=== PATIENT | female | born 1960 | race Caucasian/White ===

== ENCOUNTER → 2017-05-20 | Outpatient (CLI) | payer OTHER ==
[~2017-05-20] MED LIST: ATOR10TA82 PO; AVLX/400 PO; BUPR-79 PO; CALC600T9 PO; CARB0.5D28 OPB; CITA20TA4 PO; CLON0.5T3 PO; CYCL0.052 OP; DEXT1TAB50 PO; DICY10CA55 PO; DIVA250T PO; DOXY100C76 PO; ERYOPO OPB; FLUT0.15 INTNAS; GFNSR600 PO; GLUC10007 PO; HYCUDL5 PO; IBUP-1050 PO; IPRATROPIUM BROMIDE INT OCU; MONT1TAB3 PO; OMEG10007 PO; PRED20TA PO; PRLSR20 PO; RANI300T2 PO; RIZA10TA18 PO; SALINE NASAL RINSE INTNAS; SUMA100T16 PO; TRAZ50TA35 PO; WLLSRUNK; ZCRUNK
[2017-05-20 18:14] LABS: BASO % 0.5 %; BASO ABS # 0.04 K/uL (0-0.2); EOS % 1.9 %; EOS ABS # 0.14 K/uL (0-0.5); HEMATOCRIT 39.6 % (37-47); HEMOGLOBIN 13.6 g/dL (12.0-16.0); IG# 0.12 K/uL (0.00-0.02); LYMPH % 38.3 %; MEAN CELL VOLUME 86.3 fL (80-100); MEAN CORPUSCULAR HEMOGLOBIN 29.6 pg (25-34); MEAN CORPUSCULAR HGB CONC 34.3 g/dl (32-36); MEAN PLATELET VOLUME 9.9 fL (7.4-10.4); MONO % 9.7 %; MONO ABS # 0.71 K/uL (0.11-0.59); PLATELET COUNT 319 K/uL (130-400); RED CELL DISTRIBUTION WIDTH CV 13.7 % (11.5-14.5); RED CELL DISTRIBUTION WIDTH SD 43.4 fL (36.4-46.3); WHITE BLOOD COUNT 7.31 K/uL (4.8-10.8)
[2017-05-20 18:27] LABS: PTT PATIENT 29.9 SECONDS (21.0-31.0)
[2017-05-20 18:37] LABS: ALBUMIN 3.8 gm/dl (3.4-5.0); BLOOD UREA NITROGEN 19 mg/dl (7-18); CALCIUM 8.8 mg/dl (8.5-10.1); CARBON DIOXIDE 30 mmol/L (21-32); CREATININE 0.77 mg/dl (0.60-1.20); GLUCOSE 74 mg/dl (70-99); POTASSIUM 3.8 mmol/L (3.5-5.1); SODIUM 136 mmol/L (136-145)
[2017-05-21 06:14] LABS: HEMOGLOBIN A1C 5.2 % (4.5-5.6)
== END | disposition home or self-care (01) ==
LOC: C.LAB1850 17:02
PROVIDERS: ATTEND Internal Medicine Endocrinology, Diabetes & Metabolism
DX: Z01.812 Encounter for preprocedural laboratory examination (principal)

== ENCOUNTER 2017-06-14 08:03 | Inpatient (IN) | payer OTHER ==
[2017-05-20 15:23] VITALS: BMI 32.0
--- NOTE | 2017-05-20 15:58 | PAT Medication Instructions ---
Service Date May 20, 2017. Current Home Medication List Atorvastatin (Lipitor), 10 MG PO HS Bupropion (Wellbutrin Sr), 150 MG PO BID Calcium Carbonate-Vitamin D (Calcium + D), 1 TAB PO NOON Carboxymethylcellulose Sodium (Refresh Tears), 2 DROPS OPB PRN Citalopram Hydrobromide (Citalopram Hydrobromide), 30 MG PO QAM Clonazepam (Klonopin), 0.5 MG PO BID PRN for RN Cyclosporine (Ophth) (Restasis), 1 DROP OP BID Dextromethorphan-Guaifenesin (Mucinex Dm Maximum Streng), 1 TAB PO BID PRN for PRN Dicyclomine Hcl (Bentyl), 10 MG PO TID Divalproex Sodium (Depakote Er), 2 TAB PO BID Doxycycline Monohydrate (Monodox), 100 MG PO QAM Erythromycin Opth (Erythromycin Opth), 1 DOSE OPB PRN Fish Oil ([place]-3), 1 CAP PO NOON Fluticasone Propionate (Nasal) (Flonase Allergy Relief), 2 SPRAYS INTNAS PRN Glucosamine Sulfate (Glucosamine), 1,000 MG PO NOON Ibuprofen (Advil), 200 MG PO PRN Montelukast Sodium (Singulair), 10 MG PO QPM Omeprazole (Prilosec), 20 MG PO BID Ranitidine (Zantac), 300 MG PO HS Sumatriptan Succinate (Imitrex), 100 MG PO PRN Trazodone Hcl (Trazodone), 50 MG PO HS [Ipratropium [place]], 2 SPRAYS INT OCU PRN [Saline Nasal Rinse], 2 SPRAYS INTNAS PRN Medication Instructions For Your Scheduled Surgery -Contact your surgeon for instructions for: Ibuprofen (Advil), 200 MG PO PRN - Hold the following medications 2 weeks prior to surgery: Fish Oil ([place]-3), 1 CAP PO NOON Glucosamine Sulfate (Glucosamine), 1,000 MG PO NOON - Hold the following medications the morning of surgery: Dicyclomine Hcl (Bentyl), 10 MG PO TID Dextromethorphan-Guaifenesin (Mucinex Dm Maximum Streng), 1 TAB PO BID PRN for PRN Calcium Carbonate-Vitamin D (Calcium + D), 1 TAB PO NOON - Take the following medications the morning of surgery with a sip of water: Carboxymethylcellulose Sodium (Refresh Tears), 2 DROPS OPB PRN (if needed) Citalopram Hydrobromide (Citalopram Hydrobromide), 30 MG PO QAM Clonazepam (Klonopin), 0.5 MG PO BID PRN for RN (if needed) Cyclosporine (Ophth) (Restasis), 1 DROP OP BID [Ipratropium [place]], 2 SPRAYS INT OCU PRN (if needed) [Saline Nasal Rinse], 2 SPRAYS INTNAS PRN (if needed) Sumatriptan Succinate (Imitrex), 100 MG PO PRN (if needed) Omeprazole (Prilosec), 20 MG PO BID Fluticasone Propionate (Nasal) (Flonase Allergy Relief), 2 SPRAYS INTNAS PRN ( if needed) Erythromycin Opth (Erythromycin Opth), 1 DOSE OPB PRN (if needed) Doxycycline Monohydrate (Monodox), 100 MG PO QAM Divalproex Sodium (Depakote Er), 2 TAB PO BID Bupropion (Wellbutrin Sr), 150 MG PO BID BRING ALL OF YOUR EYE DROPS WITH YOU TO THE HOSPITAL THE MORNING OF THE SURGERY - Take the following medications as scheduled the night before surgery: Montelukast Sodium (Singulair), 10 MG PO QPM Omeprazole (Prilosec), 20 MG PO BID Ranitidine (Zantac), 300 MG PO HS Sumatriptan Succinate (Imitrex), 100 MG PO PRN (if needed) Trazodone Hcl (Trazodone), 50 MG PO HS [Ipratropium [place]], 2 SPRAYS INT OCU PRN (if needed) [Saline Nasal Rinse], 2 SPRAYS INTNAS PRN (if needed) Fluticasone Propionate (Nasal) (Flonase Allergy Relief), 2 SPRAYS INTNAS PRN ( if needed) Erythromycin Opth (Erythromycin Opth), 1 DOSE OPB PRN (if needed) Divalproex Sodium (Depakote Er), 2 TAB PO BID Dicyclomine Hcl (Bentyl), 10 MG PO TID Dextromethorphan-Guaifenesin (Mucinex Dm Maximum Streng), 1 TAB PO BID PRN for PRN (if needed) Clonazepam (Klonopin), 0.5 MG PO BID PRN for RN (if needed) Cyclosporine (Ophth) (Restasis), 1 DROP OP BID Carboxymethylcellulose Sodium (Refresh Tears), 2 DROPS OPB PRN (if needed) Atorvastatin (Lipitor), 10 MG PO HS Bupropion (Wellbutrin Sr), 150 MG PO BID If you have any questions please call us at [phone] or [phone] or [phone]
--- NOTE | 2017-06-10 09:40 | History and Physical ---
History & Physical Date Jun 10, 2017. Chief Complaint Left knee pain History of Present Illness The patient is a 56 year old female with complaints of left knee pain for several years. She has tried conservative therapy with minimal relief. She would like to proceed with scheduled surgery. Past Medical/Surgical History PMHx: hypercholesterolemia, anxiety, osteoarthritis, GERD, H/O basal cell carcinoma PSHx: partial hysterectomy, x1 Additional History Hepatic Disease: No Endocrine Disorder: No Kidney Disease: No Hypertension: No Heart Disease: No Bleeding Tendencies: No Infectious Diseases: No Allergies Coded Allergies: Bacitracin (Verified Allergy, Mild, RASH with eye ointment, 05/20/17) Nickel (Verified Allergy, Unknown, REDNESS,ITCHING MILD PAIN WITH, 05/20/17 ) Home Medications Scheduled Atorvastatin (Lipitor), 10 MG PO HS Bupropion (Wellbutrin Sr), 150 MG PO BID Calcium Carbonate-Vitamin D (Calcium + D), 1 TAB PO NOON Carboxymethylcellulose Sodium (Refresh Tears), 2 DROPS OPB PRN Citalopram Hydrobromide (Citalopram Hydrobromide), 30 MG PO QAM Cyclosporine (Ophth) (Restasis), 1 DROP OP BID Dicyclomine Hcl (Bentyl), 10 MG PO TID Divalproex Sodium (Depakote Er), 2 TAB PO BID Doxycycline Monohydrate (Monodox), 100 MG PO QAM Erythromycin Opth (Erythromycin Opth), 1 DOSE OPB PRN Fish Oil ([place]-3), 1 CAP PO NOON Fluticasone Propionate (Nasal) (Flonase Allergy Relief), 2 SPRAYS INTNAS PRN Glucosamine Sulfate (Glucosamine), 1,000 MG PO NOON Ibuprofen (Advil), 200 MG PO PRN Montelukast Sodium (Singulair), 10 MG PO QPM Omeprazole (Prilosec), 20 MG PO BID Ranitidine (Zantac), 300 MG PO HS Sumatriptan Succinate (Imitrex), 100 MG PO PRN Trazodone Hcl (Trazodone), 50 MG PO HS [Ipratropium [place]], 2 SPRAYS INT OCU PRN [Saline Nasal Rinse], 2 SPRAYS INTNAS PRN Scheduled PRN Clonazepam (Klonopin), 0.5 MG PO BID PRN for RN Dextromethorphan-Guaifenesin (Mucinex Dm Maximum Streng), 1 TAB PO BID PRN for PRN Physical Examination Skin: warm/dry, no rash Eyes: normal inspection, EOMI ENT: normal ENT inspection Head: normocephalic, atraumatic Neck: supple, no adenopathy Respiratory/Chest: lungs clear, normal breath sounds Cardiovascular: regular rate, rhythm, no murmur Abdomen / GI: normal bowel sounds, non tender Extremities: normal inspection, + pertinent finding (Medial joint line tenderness. Decreased strength.) Diagnosis Primary osteoarthritis of left knee Plan of Treatment Patient is scheduled for a left total knee arthroplasty. She has failed conservative therapies and would like to proceed with scheduled surgery. Risks and benefits were discussed with the patient. She understands these risks and wishes to proceed. All questions were answered to her satisfaction. DVT prophylaxis - ASA, DISCHARGE - home with home health. PER INSURANCE, SHE WILL NEED TO BE A 24 HOURS OBSERVATION.
[2017-06-14] VITALS (7 sets, daily range): BP systolic 115–138; BP diastolic 72–87; PULSE 82–92; TEMP 36.3–36.8; O2SAT 93–97; Ht 170.2 cm; Wt 94.8 kg
[~2017-06-14] VITALS: Ht 170.2 cm; Wt 94.8 kg
[2017-06-14] MEDS: TRANEXAMIC ACID INJ 1,000 MG x 2 Bags IV SCH ×4 (06:30→11:35)
[~2017-06-14 08:03] MED LIST changes: +ACETAMINOPHEN 500 MG TAB PO SCH; -AVLX/400 PO; +BUPIVACAINE 0.25% 30 ML VIAL ONE; +BUPIVACAINE 0.5 % 5 MG/1 ML PF 10ML VIAL ONE; +CEFAZOLIN 2000MG IV PUSH 15 ML IV SCH; +DEXAMETHASONE 4 MG TAB PO SCH; +FAMOTIDINE 20 MG TAB PO SCH; +GABAPENTIN 900 MG PO SCH; -GFNSR600 PO; -HYCUDL5 PO; +LACTATED RINGER'S 1000ML 1,000 ML IV SCH; +LACTATED RINGER'S 1000ML 500 ML IV SCH; +METOCLOPRAMIDE HCL 10 MG TAB PO SCH; -PRED20TA PO; -RIZA10TA18 PO; +ROPIVACAINE 5MG/ML 30 ML 150 MG, BUPIVACAINE 0.5% MPF INJ 30 ML, EpINEphrine HCL INJ 0.... INFIL SCH; -WLLSRUNK; -ZCRUNK
--- NOTE | 2017-06-14 09:41 | History & Physical Bridge Note ---
H&P Re-Evaluation Bridge Note: I have examined the patient, reviewed the History & Physical and in the interval since the performance of the History & Physical I have noted the following changes of clinical significance: No changes noted
[2017-06-14] MEDS ORDERED: POVIDONE-IODINE OP SOLN 30 ML BTL ONE (10:32)
[2017-06-14] MEDS ORDERED: ORTHO JOINT ANESTHETIC ONE (10:32)
[2017-06-14] MEDS ORDERED: BACITRACIN 50000 UNIT VIAL ONE (10:33)
[2017-06-14] MEDS ORDERED: MIDAZOLAM HCL 1 MG/ML 2ML VIAL ONE ×2 (10:58)
[2017-06-14] MEDS ORDERED: PROPOFOL IV EMULSION 10 MG/ML 20 ML VIAL IV ONE ×3 (10:58→12:38)
--- NOTE | 2017-06-14 13:35 | [facility] Operative Report ---
Operative Report Operative Date Jun 14, 2017. Pre-Operative Diagnosis Degenerative Joint Disease Left Knee Post-Operative Diagnosis Same as preop Procedure(s) Performed Left total knee arthroplasty Surgeon Dr. Stevens Research Worker Kitchen Surgeon(s) Lolis EPPS Estimated Blood Loss 20ML Specimens Left knee bone and tissue Drains 2 Hemovac Anesthesia Type MAC Spinal Regional Complication(s) none Disposition Recovery Room / PACU Indications The patient is a 56-year-old female long-standing arthritic change the right knee. She is failed conservative measures including injection, anti- inflammatories, physical therapy. She wishes to proceed with left total knee arthroplasty. Description of Procedure Risks benefits and alternatives of surgery including but not limited to infection, DVT, pain, stiffness, need for surgery, damage to blood vessels, damage to nerves or risks of anesthesia were discussed with the patient and they wished to proceed. The patient was identified and the laterality was confirmed and marked. They received a preoperative antibiotic as well as a spinal anesthetic and an abductor canal block. A well-padded tourniquet was applied and then the limb was prepped and draped in standard manner with ChloraPrep. The limb was exsanguinated and the tourniquet was inflated. I made a standard anterior incision. I sharply incised the skin then utilized Bovie electrocautery as well as the aqua mantis to achieve hemostasis. I made a medial parapatellar arthrotomy and mobilized the patella laterally. I then excised the anterior horns of the medial and lateral meniscus as well as the infrapatellar fat pad. I elevated a portion of the MCL off of the tibia. I then pinned into place a patient-matched distal femoral cutting guide and made my distal femoral resection. I then pinned into place the 5 in 1 femoral cutting guide. I made my anterior, posterior and chamfer cuts. I then excised the cruciates and the remaining portions of the menisci. I then pinned into place a patient- matched tibial cutting guide and made my tibial resection. I then pinned into place the tibial plate a utilizing alignment nikolas to confirm rotation. I then cut for the post. Utilizing a lamina ten pin bowling centre manager and I then removed posterior osteophytes off the femur. I then placed a trial femur into position and cut for the trochlear component. The size 4 appeared to be too wide. I removed the size 4 femur placed a size 3 cutting guide in position and recut for size 3 femur. There was still a little bit of medial to lateral mismatch but it did fit much better than the 4. I then sequentially trialed to size the polyethylene until there was good soft tissue balancing and range of motion. I then prepared the patella with a freehand cut utilizing sagittal saw. I sized and drilled for the patella. There was good tracking to the patella no lateral release was needed. All the trial components were removed. The deep tissues were anesthetized with an ortho mix solution. Then with Simplex HV with gentamicin cement, I cemented my definitive components. Definitive components, Eldridge [employer] Nephew Annyney 2: Femur 3 Tibia 2 Poly 9 Patella 32 oval A betadine soak was performed. A deep drain was placed. The arthrotomy was closed with interrupted #1 Vicryl suture subcutaneous tissue was closed with interrupted 2-0 Vicryl suture. The skin was closed with bandar. A Silverlon was placed. Sterile dressings were applied. All needle and sponge counts were correct at the end of the procedure patient was transferred to the PACU in stable condition without apparent complication. The PA-C was necessary for assistance with procedure for assistance in positioning, prepping, draping, retraction and closure. I attest to the content of the Intraoperative Record and any orders documented therein. Any exceptions are noted below.
[2017-06-14] MEDS ORDERED: DiphenhydrAMINE HCL 50 MG/ML VIAL IV PRN (14:00)
[2017-06-14] MEDS ORDERED: BISACODYL 10 MG SUPP PR PRN (14:00)
[2017-06-14] MEDS ORDERED: CEFAZOLIN IV 2,000 MG in DEXTROSE 5% 50ML 50 ML IV SCH (14:00)
[2017-06-14] MEDS ORDERED: MAGNESIUM HYDROXIDE SUSP 30 ML UDC PO PRN (14:00)
[2017-06-14] MEDS ORDERED: ONDANSETRON INJ 2 MG/ML 2 ML VIAL IV PRN (14:00)
[2017-06-14] MEDS ORDERED: ALUMINUM/MAGNESIUM/SIMETH (MAALOX MAX) 30 ML UDC PO PRN (14:00)
[2017-06-14] MEDS ORDERED: GLUCOSAMINE SULFATE 1000 MG PO SCH (14:00)
[2017-06-14] MEDS ORDERED: MoRPHine SULFATE 2 MG/ML CARP IV PRN (14:00)
[2017-06-14] MEDS ORDERED: SUMATRIPTAN SUCC TAB 100 MG TAB PO PRN (14:00)
[2017-06-14] MEDS ORDERED: ZOLPIDEM TARTRATE 5 MG TAB PO PRN (14:00)
[2017-06-14] MEDS ORDERED: CLONAZEPAM 0.5 MG TAB PO PRN (14:00)
[2017-06-14] MEDS ORDERED: SOD PHOSPHATE/SOD BIPHOSPHATE ENEMA 132 ML BTL PR PRN (14:00)
--- NOTE | 2017-06-14 14:21 | DIAGNOSTIC IMAGING REPORT ---
TWO VIEWS LEFT KNEE CLINICAL HISTORY: Postoperative examination. FINDINGS: AP and crosstable lateral portable views of the left knee are obtained. A left knee arthroplasty is in near anatomic alignment. There has been undersurface remodeling of the patella. No acute fracture is seen. There are expected postoperative changes around the knee including skin clips, a surgical drain, soft tissue edema, and subcutaneous gas. IMPRESSION: Expected postoperative changes status post left knee arthroplasty. No acute fracture is seen. Electronically signed by: Justin Yates M.D. 06/14/2017 2:20 PM Dictated Date/Time: 06/14/2017 2:20 PM
[2017-06-14] MEDS ORDERED: GUAIFENESIN/DEXTROM SYRUP 200MG/20MG 10ML UDC PO PRN (14:30)
[2017-06-14] MEDS ORDERED: SODIUM CHLORIDE 0.65% NA SOLN 45 ML (OCEAN) PRN (14:30)
--- NOTE | 2017-06-14 14:56 | Anesthesiology Progress Note ---
Anesthesia Post Op Note Date & Time Jun 14, 2017 at 14:55 Vital Signs Pain Intensity: 0 Vital Signs Past 12 Hours Date Time Temp Pulse Resp B/P (MAP) Pulse Ox O2 Delivery O2 Flow Rate FiO2 06/14/17 14:49 82 16 98 06/14/17 14:49 81 16 06/14/17 14:46 120/73 06/14/17 14:44 85 13 95 06/14/17 14:44 84 13 06/14/17 14:41 126/82 06/14/17 14:39 83 12 06/14/17 14:39 83 12 93 06/14/17 14:38 121/74 06/14/17 14:37 83 12 94 06/14/17 14:37 84 12 06/14/17 14:35 36.9 06/14/17 14:32 84 16 94 06/14/17 14:32 84 16 06/14/17 14:31 122/78 06/14/17 14:29 89 13 93 06/14/17 14:29 89 13 06/14/17 14:26 121/77 06/14/17 14:24 85 16 06/14/17 14:24 85 16 94 06/14/17 14:23 88 17 95 06/14/17 14:23 87 17 06/14/17 14:20 129/84 06/14/17 14:18 88 16 96 06/14/17 14:18 88 16 06/14/17 14:16 103/78 06/14/17 14:13 89 16 97 06/14/17 14:13 89 16 06/14/17 14:12 89 16 96 06/14/17 14:12 90 16 06/14/17 14:11 125/77 06/14/17 14:07 92 12 95 06/14/17 14:07 93 12 06/14/17 14:06 133/76 06/14/17 14:02 91 18 06/14/17 14:02 90 18 92 06/14/17 14:01 124/96 06/14/17 13:58 136/86 06/14/17 13:57 36.7 92 14 136/86 93 Oxymask 15 06/14/17 13:57 95 92 06/14/17 13:57 95 06/14/17 09:00 36.8 83 18 138/87 96 Room Air Notes Mental Status: alert / awake / arousable, participated in evaluation Pt Amnestic to Procedure: Yes Nausea / Vomiting: adequately controlled Pain: adequately controlled Airway Patency, RR, SpO2: stable & adequate BP & HR: stable & adequate Hydration State: stable & adequate Neuraxial Anesthesia: was administered, sensory block is resolving Anesthetic Complications: no major complications apparent
[2017-06-14] MEDS: SODIUM CHLORIDE 0.9% 1000ML 1,000 ML IV SCH (16:00)
[2017-06-14] MEDS ORDERED: IPRATROPIUM BROMIDE NASAL SPRAY 0.06% 15ML INH PRN (16:00)
[2017-06-14] MEDS: FERROUS GLUCONATE 324 MG TAB PO SCH (18:03)
[2017-06-14] MEDS: CEFAZOLIN IV 2,000 MG in SYRINGE 0 ML IV SCH (21:08)
[2017-06-14] MEDS: MONTELUKAST SOD 10 MG TAB PO SCH (21:08)
[2017-06-14] MEDS: DICYCLOMINE HCL 10 MG CAP PO SCH (21:08)
[2017-06-14] MEDS: OXYCODONE HCL IR 5 MG TAB (IMMEDIATE RELEASE) PO PRN ×2 (21:08→22:33)
[2017-06-14] MEDS: SENNA 8.6 MG TAB PO SCH (21:08)
[2017-06-14] MEDS: DOCUSATE SODIUM 100 MG CAP PO SCH (21:09)
[2017-06-14] MEDS: ASPIRIN 81 MG ECTAB PO SCH (21:09)
[2017-06-14] MEDS: RANITIDINE HCL 150 MG TAB PO SCH (21:09)
[2017-06-14] MEDS: TRAZODONE HCL 50 MG TAB PO SCH (21:09)
[2017-06-14] MEDS: ATORVASTATIN 10 MG TAB PO SCH (21:09)
[2017-06-14] MEDS: CeleBREX 200 MG CAP PO SCH (21:10)
[2017-06-14] MEDS: DIVALPROEX 500 MG EXTENDED RELEASE TAB PO SCH (21:10)
[2017-06-14] MEDS: BuPROPion SR 150 MG TABCR PO SCH (21:10)
[2017-06-14] MEDS: PANTOprazole SOD 40 MG TAB PO SCH (21:11)
[2017-06-15] MEDS: SODIUM CHLORIDE 0.9% 1000ML 1,000 ML IV SCH ×2 (00:53→11:51)
[2017-06-15 03:30] VITALS: BP 124/76; PULSE 85; TEMP 36.4; O2SAT 96
[2017-06-15] MEDS: CEFAZOLIN IV 2,000 MG in SYRINGE 0 ML IV SCH (04:29)
[2017-06-15 06:25] LABS: HEMATOCRIT 34.5 % (37-47); HEMOGLOBIN 11.6 g/dL (12.0-16.0); MEAN CELL VOLUME 87.3 fL (80-100); MEAN CORPUSCULAR HEMOGLOBIN 29.4 pg (25-34); MEAN CORPUSCULAR HGB CONC 33.6 g/dl (32-36); MEAN PLATELET VOLUME 9.7 fL (7.4-10.4); PLATELET COUNT 299 K/uL (130-400); RED CELL DISTRIBUTION WIDTH CV 13.3 % (11.5-14.5); WHITE BLOOD COUNT 14.24 K/uL (4.8-10.8)
[2017-06-15 07:07] LABS: CALCIUM 8.2 mg/dl (8.5-10.1); CREATININE 0.82 mg/dl (0.60-1.20)
[2017-06-15 07:35] VITALS: BP 124/83; PULSE 85; TEMP 36.4; O2SAT 96
[2017-06-15] MEDS: BuPROPion SR 150 MG TABCR PO SCH ×2 (08:45→20:51)
[2017-06-15] MEDS: CeleBREX 200 MG CAP PO SCH ×2 (08:45→20:52)
[2017-06-15] MEDS: DOCUSATE SODIUM 100 MG CAP PO SCH ×2 (08:46→20:51)
[2017-06-15] MEDS: DIVALPROEX 500 MG EXTENDED RELEASE TAB PO SCH ×2 (08:46→20:52)
[2017-06-15] MEDS: ASPIRIN 81 MG ECTAB PO SCH ×2 (08:46→20:52)
[2017-06-15] MEDS: FERROUS GLUCONATE 324 MG TAB PO SCH ×3 (08:47→17:55)
[2017-06-15] MEDS: CITALOPRAM 20 MG TAB PO SCH (08:47)
[2017-06-15] MEDS: MULTIVITAMIN TAB PO SCH (08:48)
[2017-06-15] MEDS: DICYCLOMINE HCL 10 MG CAP PO SCH ×3 (08:55→20:51)
[2017-06-15] MEDS: PANTOprazole SOD 40 MG TAB PO SCH ×2 (10:53→20:51)
--- NOTE | 2017-06-15 11:30 | Orthopedic Progress Note ---
Orthopedic Progress Note Date of Service Jun 15, 2017. Subjective Post OP Day: 1 Reports: feeling well, Denies: chest pain, SOB, nausea / vomiting, light headedness, calf pain Objective calves soft nontender, N/V intact, capillary refill less than 2 sec., dressing C /D/I, A&O x3, toes mobile, hemovac drainage Date Time Temp Pulse Resp B/P (MAP) Pulse Ox O2 Delivery O2 Flow Rate FiO2 06/15/17 07:35 36.4 85 18 124/83 (97) 96 Nasal Cannula 2.0 06/15/17 07:35 Room Air 06/15/17 03:30 36.4 85 18 124/76 (92) 96 Nasal Cannula 2.0 06/14/17 23:10 Room Air 06/14/17 23:08 36.6 82 16 123/72 (89) 93 Room Air 06/14/17 18:57 36.4 88 18 128/81 (97) 96 Room Air 06/14/17 17:26 36.3 84 18 121/82 (95) 94 Room Air 06/14/17 16:27 36.3 83 16 115/75 (88) 97 Nasal Cannula 4.0 06/14/17 16:00 36.5 85 16 128/85 (99) 97 Nasal Cannula 4.0 06/14/17 15:30 36.6 92 16 120/82 (95) 93 Nasal Cannula 4.0 06/14/17 15:30 96 Nasal Cannula 4.0 06/14/17 15:30 Nasal Cannula 4.0 06/14/17 15:25 36.5 06/14/17 15:22 86 16 94 06/14/17 15:22 86 16 06/14/17 15:21 118/74 06/14/17 15:17 85 13 06/14/17 15:17 85 13 93 06/14/17 15:16 130/77 06/14/17 15:12 81 14 93 06/14/17 15:12 83 14 06/14/17 15:11 119/73 06/14/17 15:07 82 14 06/14/17 15:07 81 14 95 06/14/17 15:06 121/75 06/14/17 15:02 80 18 06/14/17 15:02 80 18 95 3/9/18 15:01 121/75 18 15:00 82 20 94 39/18 15:00 82 20 3/9/18 14:56 124/80 18 14:55 81 13 96 18 14:55 83 13 18 14:51 116/80 18 14:50 85 14 93 18 14:50 84 14 06/14/17 14:49 82 16 98 18 14:49 81 16 18 14:46 120/73 18 14:44 85 13 95 18 14:44 84 13 06/14/17 14:41 126/82 06/14/17 14:39 83 12 06/14/17 14:39 83 12 93 18 14:38 121/74 06/14/17 14:37 83 12 94 18 14:37 84 12 06/14/17 14:35 36.9 06/14/17 14:32 84 16 94 06/14/17 14:32 84 16 06/14/17 14:31 122/78 06/14/17 14:29 89 13 93 18 14:29 89 13 06/14/17 14:26 121/77 06/14/17 14:24 85 16 06/14/17 14:24 85 16 94 18 14:23 88 17 95 18 14:23 87 17 18 14:20 129/84 06/14/17 14:18 88 16 96 18 14:18 88 16 18 14:16 103/78 18 14:13 89 16 97 18 14:13 89 16 18 14:12 89 16 96 18 14:12 90 16 18 14:11 125/77 18 14:07 92 12 95 18 14:07 93 12 18 14:06 133/76 06/14/17 14:02 91 18 06/14/17 14:02 90 18 92 06/14/17 14:01 124/96 06/14/17 13:58 136/86 06/14/17 13:57 36.7 92 14 136/86 93 Oxymask 15 06/14/17 13:57 95 92 06/14/17 13:57 95 Laboratory Results 24 Hours: Test 06/15/17 05:57 Hematocrit 34.5 % Hemoglobin 11.6 g/dL Prothromb Time International Ratio 1.0 Prothrombin Time 10.7 SECONDS Assessment & Plan Assessment: s/p left TKA POD #1 Plan: Plan for home with DVT prophylaxis: ASA SCDs/TEDs Inhouse Planning Pain Management: Oxy IR DVT Prophylaxis: TEDs, SCDs, ASA Discharge Planning Discharge Planning: home with home health Therapy: Physical Therapy
[2017-06-15] MEDS: CALCIUM 600MG + VIT D 400 IU TAB PO SCH (11:52)
[2017-06-15 12:15] VITALS: BP 142/87; PULSE 81; TEMP 36.3; O2SAT 95
[2017-06-15 15:04] VITALS: BP 175/93; PULSE 91; TEMP 36.4; O2SAT 98
[2017-06-15] MEDS: OXYCODONE HCL IR 5 MG TAB (IMMEDIATE RELEASE) PO PRN (15:19)
[2017-06-15 15:25] VITALS: BP 147/90
[2017-06-15] MEDS: ATORVASTATIN 10 MG TAB PO SCH (21:24)
[2017-06-15] MEDS: RANITIDINE HCL 150 MG TAB PO SCH (21:24)
[2017-06-15] MEDS: TRAZODONE HCL 50 MG TAB PO SCH (21:24)
[2017-06-15] MEDS: SENNA 8.6 MG TAB PO SCH (21:24)
[2017-06-15] MEDS: MONTELUKAST SOD 10 MG TAB PO SCH (21:24)
[2017-06-15 23:05] VITALS: BP 145/85; PULSE 80; TEMP 36.8; O2SAT 94
[2017-06-16] MEDS: OXYCODONE HCL IR 5 MG TAB (IMMEDIATE RELEASE) PO PRN ×3 (00:02→12:34)
[2017-06-16 07:22] VITALS: BP 146/84; PULSE 79; TEMP 36.7; O2SAT 95
[2017-06-16] MEDS: FERROUS GLUCONATE 324 MG TAB PO SCH ×2 (07:25→12:36)
[2017-06-16] MEDS: DICYCLOMINE HCL 10 MG CAP PO SCH (07:25)
[2017-06-16] MEDS: BuPROPion SR 150 MG TABCR PO SCH (07:25)
[2017-06-16] MEDS: MULTIVITAMIN TAB PO SCH (07:25)
[2017-06-16] MEDS: PANTOprazole SOD 40 MG TAB PO SCH (07:25)
[2017-06-16] MEDS: CITALOPRAM 20 MG TAB PO SCH (07:38)
[2017-06-16 08:32] VITALS: BP 154/92
[2017-06-16] MEDS: DIVALPROEX 500 MG EXTENDED RELEASE TAB PO SCH (09:25)
[2017-06-16] MEDS: ASPIRIN 81 MG ECTAB PO SCH (09:25)
[2017-06-16] MEDS: CeleBREX 200 MG CAP PO SCH (09:25)
[2017-06-16] MEDS: DOCUSATE SODIUM 100 MG CAP PO SCH (09:25)
[2017-06-16 09:58] VITALS: BP 154/92; PULSE 79; TEMP 36.7; O2SAT 95
--- NOTE | 2017-06-16 11:24 | Orthopedic Progress Note ---
Orthopedic Progress Note Date of Service Jun 16, 2017. Subjective Post OP Day: 2 Reports: feeling well, pain controlled w PO medications, Denies: chest pain, SOB , nausea / vomiting, light headedness, calf pain Objective calves soft nontender, N/V intact, capillary refill less than 2 sec., dressing C /D/I (silverlon), A&O x3, toes mobile Date Time Temp Pulse Resp B/P (MAP) Pulse Ox O2 Delivery O2 Flow Rate FiO2 06/16/17 09:58 36.7 79 16 95 Room Air 06/16/17 07:22 36.7 79 16 146/84 (104) 95 Room Air 06/16/17 07:15 Room Air 06/16/17 00:00 Nasal Cannula 2.0 06/15/17 23:05 36.8 80 16 145/85 (105) 94 Room Air 06/15/17 15:25 147/90 (109) 06/15/17 15:15 Room Air 06/15/17 15:04 36.4 91 17 175/93 (120) 98 Room Air 06/15/17 12:15 36.3 81 19 142/87 (105) 95 Room Air Assessment & Plan Assessment: s/p left TKA POD #2 Plan: Plan for home with DVT prophylaxis: ASA SCDs/TEDs Inhouse Planning Pain Management: Celebrex, PO Tylenol, Oxy IR DVT Prophylaxis: TEDs, SCDs, ASA Discharge Planning Discharge Planning: home with home health Pain Management: Celebrex, PO Tylenol, Oxy IR DVT Prophylaxis: TEDs, ASA Therapy: Physical Therapy
[2017-06-16] MEDS ORDERED: ONDA8TAB6 PO (11:27)
[2017-06-16] MEDS ORDERED: CLB200 PO (11:27)
[2017-06-16] MEDS ORDERED: ASPEC81 PO (11:27)
[2017-06-16] MEDS ORDERED: FRRG PO (11:27)
[2017-06-16] MEDS ORDERED: RXC5 PO (11:27)
--- NOTE | 2017-06-16 11:30 | Discharge Instructions ---
Discharge Instructions Date of Service Jun 16, 2017. Admission Reason for Admission: Left Knee Osteoarthritis Discharge Discharge Diagnosis / Problem: left TKA Discharge Goals Goal(s): Decrease discomfort, Improve function, Increase independence, Therapeutic intervention Activity Recommendations Activity Limitations: per Instructions/Follow-up section . Instructions / Follow-Up Instructions / Follow-Up ACTIVITY RECOMMENDATIONS: SELF CARE INSTRUCTIONS AFTER TOTAL KNEE REPLACEMENT A. You may need to continue a physical therapy program after discharge from the hospital. There are several options available to you. Your doctor will assist you in selecting the best one for you. 1. An out-patient facility 2 to 3 times a week for therapy or home therapy. 2. Continue working on all exercises taught to you in the hospital. Your goals should be to increase bending of your knee to 90 degrees and beyond and to fully straighten your knee. B. You may progress at your own pace from walking with a walker or crutches to a cane; then to no assistive devices. C. Make walking a part of your daily routine. Be up as much as comfortable with rest periods throughout the day. Rest with leg elevation is very important. Use the ice wrap frequently for the first 3-4 weeks. D. There are no restrictions on activities. You may ride in a car, shop, participate in home health lpn and all social activities. E. Wear the long elastic stockings (LOIDA hose) 20 hours a day for 2 weeks after surgery. They can be removed several times a day for laundering and for a bath. F. You may shower, no tub baths until cleared by your doctor. SPECIAL CARE INSTRUCTIONS: VERY IMPORTANT TO READ AND REVIEW A. There are a few signs you need to watch for after you are home. Call [facility] [place] if you notice any of the followin. Increased severe knee pain. Some pain is expected especially when you exercise. 2. Increased swelling in your leg or knee; pain or swelling of the calf muscle in either lower leg. 3. Any fluid drainage from the incision. 4. Shortness of breath or chest pain. B. Please call [facility] [place] at if you have any concerns or questions about your operation or recovery. The doctor or his nurse will return your call promptly. C. You must take antibiotics before dental work, bladder, bowel or other surgery. Your doctor will provide you with a permanent care to carry describing this precaution. IMPORTANT: * REMEMBER TO TAKE ASPIRIN, 81 MG, TWICE DAILY FOR 4 WEEKS UNLESS OTHERWISE DIRECTED. THIS IS YOUR BLOOD THINNER. * HIGH RISK PATIENTS MAY BE PRESCRIBED A STRONGER BLOOD THINNER. THIS WILL BE PROVIDED AT DISCHARGE. * CALL IF INCREASED PAIN, REDNESS, DRAINAGE OR FEVER GREATER THAT 101. * WEAR LOIDA HOSE 20 HOURS PER DAY FOR 2 WEEKS. * YOU MAY HAVE A LARGE BAND-AID LIKE DRESSING (SILVERON). THIS WILL REMAIN ON YOUR INCISION FOR 7 DAYS, THEN CAN BE REMOVED. IF INCISION IS LEAKING THROUGH DRESSING, CALL THE OFFICE . FOLLOW UP VISIT: If appointment is not already scheduled: Please call [facility] [place] to make a follow-up appointment for 2 weeks after your surgery at . Current Hospital Diet Patient's current hospital diet: Regular Diet Discharge Diet Recommended Diet: Regular Diet Procedures Procedures Performed: Left total knee arthroplasty Pending Studies Studies pending at discharge: no Laboratory Results Hemoglobin A1c Test 05/20/17 17:05 Range/Units Estimated Average Glucose 103 mg/dl Hemoglobin A1c 5.2 4.5-5.6 % Medical Emergencies . Who to Call and When: Medical Emergencies: If at any time you feel your situation is an emergency, please call 911 immediately. . Non-Emergent Contact Non-Emergency issues call your: Primary Care Provider . "Provider Documentation" section prepared by Eneida Horton. . [place] Drug Monitoring Program Search Results: patient reviewed within database, no issues identified
[2017-06-16] MEDS: CALCIUM 600MG + VIT D 400 IU TAB PO SCH (12:33)
--- NOTE | 2017-06-18 11:53 | Discharge Summary ---
Orthopedic Discharge Summary Admission Date/Reason Jun 14, 2017 at 14:03 Left Knee Osteoarthritis. Discharge Date/Disposition Jun 16, 2017 Home with services Diagnosis Principal Diagnosis: S/P Left TKA Medication Reconciliation as per discharge instructions Admission Physical Exam As per Admitting History & Physical. Hospital Course POD#1 patient was doing well. Her pain was well controlled with PO medications. Her dressing was clean, dry and intact. She would like to be discharged home with home health, social work assistant was able to set this up. She stayed overnight due to Hemovac drainage. POD#2 patient was doing well. Her pain was well controlled with PO medications. Her dressing was clean, dry and intact. She would like to be discharged home with home health today. After morning PT, she was discharged. Discharge Instructions Please refer to the electronic Patient Visit Report (Discharge Instructions) for additional information.
== END 2017-06-16 13:45 | disposition home health service (06) | DRG 470 ==
LOC: C.ACU 08:03 → C.3E 14:03 → ENRESERV 15:17
PROVIDERS: ADMIT Orthopaedic Surgery; ATTEND Orthopaedic Surgery
PROC: 0SRD0J9 Replacement of Left Knee Joint with Synthetic Substitute, Cemented, Open Approach (ICD-10-PCS; principal; 2017-06-14 10:30)
DX: M17.12 Unilateral primary osteoarthritis, left knee (principal); E78.00 Pure hypercholesterolemia, unspecified; K21.9 Gastro-esophageal reflux disease without esophagitis; F41.9 Anxiety disorder, unspecified; Z79.899 Other long term (current) drug therapy; Z85.828 Personal history of other malignant neoplasm of skin; Z88.1 Allergy status to other antibiotic agents; Z91.048 Other nonmedicinal substance allergy status